=== PATIENT | male | born 1960 | race Caucasian/White ===

== ENCOUNTER 2017-10-29 02:22 | Emergency (ER) | payer BC, MEDICAID, OTHER ==
[~2017-10-29] VITALS: Ht 177.8 cm; Wt 96.2 kg
[~2017-10-29 02:22] MED LIST: ASPI-1169 PO; LOSA50TA3 PO; METF-440 PO; SIMV20TA2 PO
--- NOTE | 2017-10-29 02:35 | NUR ---
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 AOX4, afebrile, denies any PARKER, no dizziness, no blurred visions w/ resp even & unlabored, no sob w/ nad noted. pt in gown, on continuous cardiac monitoring. EKG at bedside, IVHL started, labs drawn & sent. Dr. Bolden at bedside for further eval.
[2017-10-29] MEDS ORDERED: ACETAMINOPHEN ES 500 MG TABLET ONE (02:48)
[2017-10-29] MEDS ORDERED: NITROGLYCERIN 0.4 MG/TAB BOTTLE ONE (02:48)
[2017-10-29] MEDS ORDERED: ASPIRIN EC 81 MG TABLET.DR PO ONE (02:48)
[2017-10-29] MEDS ORDERED: NITROGLYCERIN PACKET 1 GM PACKET ONE (02:49)
[2017-10-29 02:51] LABS: BASOPHILS % (AUTO) 0.2 % (0.0-2.0); HEMATOCRIT 45 % (39-51); HEMOGLOBIN 15.4 g/dL (13.5-17.5); LYMPHOCYTES # (AUTO) 2.7 /CMM (0.8-4.8); LYMPHOCYTES % (AUTO) 36.4 % (20.0-44.0); MEAN CORPUSCULAR HGB CONC 34 g/dl (31.0-36.0); MEAN CORPUSCULAR VOLUME 82 fL (80-96); MONOCYTES # (AUTO) 0.5 /CMM (0.1-1.30); MONOCYTES % (AUTO) 7.2 % (2.0-12.0); NEUTROPHILS # (AUTO) 3.9 /CMM (1.8-8.9); NEUTROPHILS % (AUTO) 53.2 % (43.0-81.0); PLATELET COUNT (AUTO) 199 /CMM (150-450); RDW COEFFICIENT OF VARIATION 13.4 (11.5-15.0); RED BLOOD CELL COUNT(AUTO) 5.49 MIL/uL (4.5-6.0); WHITE BLOOD COUNT (AUTO) 7.3 K/uL (4.3-11.0)
[2017-10-29] MEDS ORDERED: NITROGLYCERIN PACKET 1 GM PACKET TD ONE (03:00)
[2017-10-29] MEDS ORDERED: ACETAMINOPHEN ES 500 MG TABLET PO ONE (03:00)
[2017-10-29] MEDS ORDERED: NITROGLYCERIN 0.4 MG/TAB BOTTLE SL ONE (03:00)
[2017-10-29] MEDS ORDERED: ASPIRIN 81 MG TAB.CHEW PO ONE (03:00)
--- NOTE | 2017-10-29 03:01 | NUR ---
Pt medicated as ordered for cp.
--- NOTE | 2017-10-29 03:11 | NUR ---
pt sitting up in bed report having PARKER w/ resp even & unlabored, denies any cp at this time w/ nad noted. on continuous cardiac monitoring.
[2017-10-29 03:15] LABS: TROPONIN I < 0.017 ng/mL (0.00-0.056)
[2017-10-29 03:18] LABS: ALANINE AMINOTRANSFERASE 32 U/L (12-78); ALBUMIN 4.3 g/dL (3.4-5.0); ALKALINE PHOSPHATASE 49 U/L (46-116); ASPARTATE AMINOTRANSFERASE 15 U/L (15-37); BILIRUBIN,DIRECT 0.1 mg/dL (0.0-0.2); BILIRUBIN,TOTAL 0.7 mg/dL (0.2-1.0); CALCIUM, SERUM 9.1 mg/dL (8.5-10.1); CARBON DIOXIDE 24 mmol/L (21-32); CHLORIDE 100 mmol/L (98-107); CREATININE 0.9 mg/dL (0.6-1.3); GLUCOSE 151 mg/dL (74-106); POTASSIUM 3.7 mmol/L (3.5-5.1); SODIUM SERUM 134 mmol/L (136-145); TOTAL PROTEIN, SERUM 7.6 g/dL (6.4-8.2); UREA NITROGEN, BLOOD 16 mg/dL (7-18)
[2017-10-29 03:22] LABS: B-TYPE NATRIURETIC PEPTIDE 9 PG/ML (0-125)
--- NOTE | 2017-10-29 04:27 | NUR ---
pt resting comfortably in bed w/ resp even & unlabored, denies any cp at this time w/ nad noted. pt at bedside. On continuous cardiac monitoring.
--- NOTE | 2017-10-29 05:50 | NUR ---
Repeat trop I drawn & sent.
[2017-10-29 07:11] VITALS: BP 106/64
--- NOTE | 2017-10-29 07:11 | NUR ---
IV removed. Catheter intact and site benign. Pressure and 4x4 applied to site. No bleeding noted.Patient discharged to home in stable condition. Written and verbal after care instructions given. Patient verbalizes understanding of instruction.
== END 2017-10-29 07:12 | disposition home or self-care (01) ==
LOC: ER 02:25
DX: R07.89 Other chest pain (principal); I10 Essential (primary) hypertension; E11.9 Type 2 diabetes mellitus without complications; F17.200 Nicotine dependence, unspecified, uncomplicated; Z79.84 Long term (current) use of oral hypoglycemic drugs
CPT/HCPCS: 36415; 71045-TC; 80048-TC; 80076-TC; 83880; 84484-TC; 85025-TC; 85378-TC; A4606; Z7610

== ENCOUNTER 2018-07-28 01:53 | Emergency (ER) | payer BC ==
[~2018-07-28] VITALS: Ht 182.9 cm; Wt 99.8 kg
[2018-07-28] MEDS ORDERED: MORPHINE SULFATE INJ 4 MG/ML DISP.SYRIN ONE (02:34)
[2018-07-28] MEDS ORDERED: ONDANSETRON HCL/PF 4 MG/2 ML VIAL ONE (02:34)
[2018-07-28] MEDS: IV NS 0.9% 1,000 ML BAG IV ONE (02:40)
[2018-07-28] MEDS: ONDANSETRON HCL/PF 4 MG/2 ML VIAL IVP ONE (02:41)
[2018-07-28] MEDS: MORPHINE SULFATE INJ 2 MG/ML DISP.SYRIN IV ONE (02:41)
[2018-07-28 02:54] LABS: BASOPHILS % (AUTO) 0.4 % (0.0-2.0); EOSINOPHILS % (AUTO) 1.8 % (0.0-6.0); HEMATOCRIT 44 % (39-51); LYMPHOCYTES # (AUTO) 2.2 /CMM (0.8-4.8); LYMPHOCYTES % (AUTO) 22.8 % (20.0-44.0); MEAN CORPUSCULAR HGB CONC 34 g/dl (31.0-36.0); MEAN CORPUSCULAR VOLUME 83 fL (80-96); MONOCYTES # (AUTO) 0.6 /CMM (0.1-1.30); MONOCYTES % (AUTO) 5.8 % (2.0-12.0); NEUTROPHILS # (AUTO) 6.6 /CMM (1.8-8.9); NEUTROPHILS % (AUTO) 69.2 % (43.0-81.0); PLATELET COUNT (AUTO) 205 /CMM (150-450); RED BLOOD CELL COUNT(AUTO) 5.33 MIL/uL (4.5-6.0); WHITE BLOOD COUNT (AUTO) 9.5 K/uL (4.3-11.0)
[2018-07-28 03:06] LABS: CARBON DIOXIDE 30 mmol/L (21-32); CHLORIDE 104 mmol/L (98-107); CREATININE 1.1 mg/dL (0.6-1.3); GLUCOSE 194 mg/dL (74-106); POTASSIUM 3.9 mmol/L (3.5-5.1); SODIUM SERUM 144 mmol/L (136-145); UREA NITROGEN, BLOOD 18 mg/dL (7-18)
[2018-07-28 03:12] LABS: ALANINE AMINOTRANSFERASE 30 U/L (12-78); ALBUMIN 4.3 g/dL (3.4-5.0); ALKALINE PHOSPHATASE 60 U/L (46-116); ASPARTATE AMINOTRANSFERASE 10 U/L (15-37); BILIRUBIN,DIRECT 0.1 mg/dL (0.0-0.2); BILIRUBIN,TOTAL 0.4 mg/dL (0.2-1.0); LIPASE 198 U/L (73-393); TOTAL PROTEIN, SERUM 7.6 g/dL (6.4-8.2)
--- NOTE | 2018-07-28 03:20 | NUR ---
Leilani arnold in [facility] - 07/28/18 at 0348 by QUENTIN CALLED FOR ICU BED. ICU 254
[2018-07-28] MEDS: HYDROMORPHONE 1 MG/1 ML DISP.SYRIN IV ONE (03:32)
[2018-07-28] MEDS ORDERED: HYDROMORPHONE 1 MG/1 ML DISP.SYRIN ONE (03:33)
[2018-07-28 04:02] LABS: APPEARANCE,URINE CLEAR (CLEAR); BILIRUBIN,URINE NEGATIVE (NEGATIVE); BLOOD, URINE NEGATIVE Ery/uL (NEGATIVE); COLOR,URINE YELLOW (YELLOW); KETONES,URINE NEGATIVE (NEGATIVE); LEUKOCYTE ESTERASE ,URINE NEGATIVE (NEGATIVE); NITRITE, URINE NEGATIVE (NEGATIVE); PH,URINE 7.5 (5.0-8.0); PROTEIN,URINE TRACE mg/dl (NEGATIVE); UGLUCOSE NEGATIVE (NEGATIVE); UROBILINOGEN,URINE 0.2 EU/dL (0.2)
[2018-07-28 04:15] LABS: BACTERIA,URINE Few /HPF (None Seen); RBC,URINE 0-2 /HPF (0-2); SQUAMOUS EPITHELIAL CELL,UR Rare /HPF (None Seen)
[2018-07-28 04:46] VITALS: BP 147/89
== END 2018-07-28 04:48 | disposition home or self-care (01) ==
LOC: ER 01:56
DX: K80.20 Calculus of gallbladder without cholecystitis without obstruction (principal); K57.30 Diverticulosis of large intestine without perforation or abscess without bleeding; I10 Essential (primary) hypertension; E11.9 Type 2 diabetes mellitus without complications; F10.10 Alcohol abuse, uncomplicated; F17.200 Nicotine dependence, unspecified, uncomplicated; Y90.9 Presence of alcohol in blood, level not specified; Z79.82 Long term (current) use of aspirin
CPT/HCPCS: 36415; 71045-TC; 80048-TC; 80076-TC; 81000-TC; 83690-TC; 84484-TC; 85025-TC; 85730-TC; J1170; J2270; J2405; J7030

== ENCOUNTER 2018-09-10 07:04 | Emergency (ER) | payer BC, MEDICAID ==
[~2018-09-10] VITALS: Ht 182.9 cm; Wt 96.6 kg
--- NOTE | 2018-09-10 07:18 | NUR ---
urine collected and sent to lab
[2018-09-10] MEDS ORDERED: ONDANSETRON HCL/PF 4 MG/2 ML VIAL IVP ONE (07:30)
[2018-09-10] MEDS ORDERED: HYDROMORPHONE INJ 2 MG/ML DISP.SYRIN IV ONE (07:30)
[2018-09-10] MEDS ORDERED: IV NS 0.9% 1,000 ML BAG IV ONE (07:30)
[2018-09-10] MEDS ORDERED: HYDROMORPHONE 1 MG/1 ML DISP.SYRIN ONE ×2 (07:37→09:11)
[2018-09-10] MEDS ORDERED: ONDANSETRON HCL/PF 4 MG/2 ML VIAL ONE (07:37)
[2018-09-10 07:42] LABS: BASOPHILS # (AUTO) 0.3 /CMM (0.0-0.2); BASOPHILS % (AUTO) 1.8 % (0.0-2.0); EOSINOPHILS % (AUTO) 0.8 % (0.0-6.0); HEMATOCRIT 44 % (39-51); HEMOGLOBIN 15.1 g/dL (13.5-17.5); LYMPHOCYTES # (AUTO) 0.8 /CMM (0.8-4.8); LYMPHOCYTES % (AUTO) 4.8 % (20.0-44.0); MEAN CORPUSCULAR HGB CONC 35 g/dl (31.0-36.0); MEAN CORPUSCULAR VOLUME 81 fL (80-96); MONOCYTES # (AUTO) 0.5 /CMM (0.1-1.30); MONOCYTES % (AUTO) 3.5 % (2.0-12.0); NEUTROPHILS # (AUTO) 13.8 /CMM (1.8-8.9); NEUTROPHILS % (AUTO) 89.1 % (43.0-81.0); PLATELET COUNT (AUTO) 211 /CMM (150-450); RED BLOOD CELL COUNT(AUTO) 5.37 MIL/uL (4.5-6.0); WHITE BLOOD COUNT (AUTO) 15.5 K/uL (4.3-11.0)
[2018-09-10 07:50] LABS: CALCIUM, SERUM 8.9 mg/dL (8.5-10.1); CREATININE 0.8 mg/dL (0.6-1.3); POTASSIUM 4.1 mmol/L (3.5-5.1)
--- NOTE | 2018-09-10 07:52 | NUR ---
PT BROUGHT IN TO EMERGENCY ROOM FOR ABDOMINAL PAIN MID REGION FOR A FEW DAYS PT HAS A HISTORY OF GALL STONES AND HAS A SURGIAL APPOINTMENT ON THE 19 OF SEPTEMBER. PT ACCOMPANIED BY FAMILY ALL FLUIDS AND MEDICATIONS GIVEN WILL CONTINUE TO MONITOR.
[2018-09-10 07:55] LABS: ALBUMIN 4.4 g/dL (3.4-5.0); BILIRUBIN,DIRECT 0.1 mg/dL (0.0-0.2); BILIRUBIN,TOTAL 0.6 mg/dL (0.2-1.0); TOTAL PROTEIN, SERUM 7.7 g/dL (6.4-8.2)
[2018-09-10] MEDS ORDERED: PIPERACILLIN /TAZOBACTAM 3.375 G in IV D5W 50 ML IV ONE (08:30)
[2018-09-10] MEDS ORDERED: GLIM1TAB PO (08:45)
[2018-09-10] MEDS ORDERED: RAMI2.5C2 PO (08:45)
[2018-09-10] MEDS ORDERED: HYDROMORPHONE 1 MG/1 ML DISP.SYRIN IV ONE (09:30)
--- NOTE | 2018-09-10 10:55 | NUR ---
[id number] AMBULANCE AUTH NUMBER
--- NOTE | 2018-09-10 11:09 | NUR ---
PT CAPITATED TO [facility] AUTHORIZATION GIVEN PENDING ADMITTING ROOM AND MD FAMILY UP DATED ABOUT PLAN OF CARE
--- NOTE | 2018-09-10 12:22 | NUR ---
SPOKE WITH THEE FROM [facility] MAINTENANCE SUPERVISOR 2ND SHIFT ROOM ASSIGNMENT GIVEN [phone] TELEPHONE NUMBER FOR RN REPORT: . CALLED AND GAVE REPORT TO HENRY WHALEN
--- NOTE | 2018-09-10 12:57 | NUR ---
CALLED [facility] FOR BLS TRANSPORT, 35 MIN ETA ([phone]) TRIP [phone]
--- NOTE | 2018-09-10 13:55 | NUR ---
pt transported by [facility]
[2018-09-10 13:56] VITALS: BP 134/84
== END 2018-09-10 13:56 | disposition short-term general hospital (02) ==
LOC: ER 07:06
DX: K81.9 Cholecystitis, unspecified (principal); I10 Essential (primary) hypertension; E11.9 Type 2 diabetes mellitus without complications; F17.200 Nicotine dependence, unspecified, uncomplicated; Z79.82 Long term (current) use of aspirin; Z79.84 Long term (current) use of oral hypoglycemic drugs; Z79.899 Other long term (current) drug therapy
CPT/HCPCS: 36415; 76705; 80048; 80076; 83690; 84484; 85025; 85730; 93005; 96365; 96375; 96376; 99285; J1170 ×2; J2405; J2543; J7060